=== PATIENT | female | born 1930 | race Caucasian/White ===

== ENCOUNTER 2017-06-21 10:47 | Emergency (ER) | payer MEDICARE ==
[2017-06-21 11:40] LABS: ABS Basophils 0 10^3/ul (0-0.2); ABS Eosinophils 0 10^3/ul (0-0.6); ABS Lymphocytes 1.1 10^3/ul (1.0-4.8); ABS Monocytes 0.3 10^3/ul (0-0.8); ABS Neutrophils 4.1 10^3/ul (1.5-7.7); ABS Nucleated RBC 0 10^3/ul; Eosinophil % 0.8 % (0-6); Hematocrit 40 % (35-47); Hemoglobin 13.3 g/dl (12.0-16.0); Lymphocyte % 20.1 % (25-47); Mean Corpuscular HGB Conc 33 g/dl (31-36); Mean Corpuscular Hemoglobin 30 pg (27-31); Mean Corpuscular Volume 90 fL (80-97); Mean Platelet Volume 7 um3 (7.4-10.4); Nucleated Red Blood Cells % 0.1; Platelet Count 253 10^3/ul (150-450); Red Blood Count 4.42 10^6/ul (4.0-5.4); Red Cell Distribution Width 14 % (10.5-15); White Blood Count 5.6 10^3/ul (3.5-10.8)
[2017-06-21 11:46] LABS: INR 0.87 (0.77-1.02)
[2017-06-21 12:06] LABS: EGFR Non-African American 67.8 (>60)
[2017-06-21 13:21] LABS: Urine Appearance Clear; Urine Blood 1+ (Negative); Urine Color Straw; Urine Ketones Trace (Negative); Urine Protein Negative (Negative); Urine Specific Gravity 1.008 (1.010-1.030); Urine Urobilinogen Negative (Negative)
[2017-06-21 15:46] VITALS: BP 148/97
--- NOTE | 2017-06-21 22:34 | ED ---
Miah Bruce Stephanie, scribed for Salud Lozano MD on 06/21/17 at 1154 . Dizziness - HPI Summary HPI Summary: The pt is an 86 y/o F with c/o dizziness that began 06/16/17. The pt reports feeling dizzy at night prior to going to bed and after getting up after a nap. The dizziness is described as room-spinning dizziness and results in the inability to ambulate. She reports that a hole was found near the furnace on and has recently been repaired. Pt is worried that she has CO poisoning. Pt's son installed a CO monitor that is not alarming. The pt denies CP. Pt takes no medications except glaucoma eye drops. Has Dr. Brar, whom she saw in 04/2017. - History Of Current Complaint Chief Complaint: EDDizziness Stated Complaint: CARBON MONOXIDE EXPOSURE Hx Obtained From: Patient, Family/Manager Quantitative - Daughters Onset/Duration: Still Present Timing: Intermittent Episode Lasting - minutes to hours Severity Initially: Moderate Severity Currently: Mild Character: Room Spinning, Dizzy Aggravating Factor(s): Exertion, Position Change Alleviating Factor(s): Rest Associated Signs And Symptoms: Positive: Unsteady Gait. Negative: Chest Pain - Allergies/Home Medications Allergies/Adverse Reactions: Allergies Allergy/AdvReac Type Severity Reaction Status Date / Time Nitroglycerin Allergy hypotension Verified 06/21/17 10:53 Home Medications: Home Medications Latanoprost 0.005%* [Xalatan 0.005%*] 1 drop BOTH EYES BID 06/21/17 [History Confirmed 06/21/17] PMH/Surg Hx/FS Hx/Imm Hx Previously Healthy: No - glaucoma Cardiovascular History: Reports: Other Cardiovascular Problems/Disorders - childhood rheumatic fever/ temporal arteritis Denies: Hx Pacemaker/ICD Musculoskeletal History: Reports: Hx Arthritis, Hx Back Problems - back fracture Sensory History: Reports: Hx Contacts or Glasses, Hx Glaucoma, Other Sensory Impairments Denies: Hx Hearing Aid Opthamlomology History: Reports: Hx Contacts or Glasses, Hx Glaucoma, Other Sensory Impairments Psychiatric History: Denies: Hx Panic Disorder - Surgical History Surgery Procedure, Year, and Place: LUMP REMOVED FROM BREAST BENIGN. HYSTERECTOMY. GALLBLADDER. CATARACTS. TEMPORAL LOBE BIOPSY W/ CLIPS- OK'S BY . hip replacement 2016 Hx Anesthesia Reactions: No Infectious Disease History: No Infectious Disease History: Denies: Traveled Outside the [place] in Last 30 Days - Family History Known Family History: Positive: Cardiac Disease, Other - stroke - Social History Lives: Alone Alcohol Use: Rare Substance Use Type: Reports: None Smoking Status (MU): Never Smoked Tobacco Review of Systems Positive: Other - dizzy. Negative: Fever Negative: Chest Pain Respiratory: Negative Gastrointestinal: Negative Neurological: Other - dizzy Positive: Other - states she has white coat hypertension All Other Systems Reviewed And Are Negative: Yes Physical Exam - Summary Physical Exam Summary: Appearance: well appearing, no pain distress, Well-nourished, c/o dizziness, elevated BP Skin: Warm, color reflects adequate perfusion Head: Normal Head/Face inspection Eyes: Conjunctiva clear ENT: Normal inspection Neck: Supple, no nodes, no JVD. Respiratory: Lungs clear, Normal breath sounds, no respiratory distress Cardio: RRR, No murmur, pulses normal, brisk capillary refill Abdomen: soft, nontender Bowel sounds: present Musculoskeletal: Strength Intact/ ROM intact. No calf tenderness. No edema. Neuro: Alert, muscle tone normal, facial symmetry, speech normal, sensory/motor intact Psychological: Normal Triage Information Reviewed: Yes Vital Signs On Initial Exam: Initial Vitals Temp Pulse Resp BP Pulse Ox 98.3 F 81 16 173/87 97 06/21/17 10:54 06/21/17 10:54 06/21/17 10:54 06/21/17 10:54 06/21/17 10:54 Vital Signs Reviewed: Yes Diagnostics - Vital Signs Vital Signs Temp Pulse Resp BP Pulse Ox 06/21/17 10:54 98.3 F 81 16 173/87 97 - Laboratory Lab Results: Lab Results 06/21/17 06/21/17 06/21/17 Range/Units 11:31 11:31 11:31 WBC 5.6 (3.5-10.8) 10^3/ul RBC 4.42 (4.0-5.4) 10^6/ul Hgb 13.3 (12.0-16.0) g/dl Hct 40 (35-47) % MCV 90 (80-97) fL MCH 30 (27-31) pg MCHC 33 (31-36) g/dl RDW 14 (10.5-15) % Plt Count 253 (150-450) 10^3/ul MPV 7 L (7.4-10.4) um3 Neut % (Auto) 72.4 (38-83) % Lymph % (Auto) 20.1 L (25-47) % [place] % (Auto) 6.0 (1-9) % Eos % (Auto) 0.8 (0-6) % Baso % (Auto) 0.7 (0-2) % Absolute Neuts (auto) 4.1 (1.5-7.7) 10^3/ul Absolute Lymphs (auto) 1.1 (1.0-4.8) 10^3/ul Absolute Monos (auto) 0.3 (0-0.8) 10^3/ul Absolute Eos (auto) 0 (0-0.6) 10^3/ul Absolute Basos (auto) 0 (0-0.2) 10^3/ul Absolute Nucleated RBC 0 10^3/ul Nucleated RBC % 0.1 INR (Anticoag Therapy) 0.87 (0.77-1.02) Carbon Monoxide Screen < 4 (<4.0) % Result Diagrams: 06/21/17 11:31 06/21/17 11:31 Lab Statement: Any lab studies that have been ordered have been reviewed, and results considered in the medical decision making process. - EKG 11:51 EKG Rhythm: Sinus Rhythm ST Segment: Non-Specific Ectopy: None EKG Interpretation: Nml AVIVCT. Nml QTc. Nml axis. nonspecific ST wave changes. EKG Comparison: Other - comparison with previous EKG from 12/27/15 (at time of hip replacement): pt has a deep Q wave in lead III and an inverted T in III that is new Re-Evaluation - Re-Evaluation First Eval Re-Evaluation Time: 13:05 Change: Unchanged - discussed admission due to EKG changes, elevated BP with diastolics greater than 100 and symptoms of dizziness, not attributable to CO poisoning. Pt and daughters resistant to idea of admission, stating BP is elevated due to white coat HTN. Second Eval Re-Evaluation Time: 14:19 - ED physician spoke to Dr. Brar. Bp is 124/84. Dr. Brar will fax over a copy of the EKG. Change: Improved - BP is now 154/86. Discussed with Dr. Brar by phone who states that BP was 124/84 on 05/02/17, and BP was 170/[address] Brar states that EKG after the hip replacement did show inverted T in III, and small upturned R wave preceding Q wave in III, so that perhaps EKG changes are not acute. Dizzy Course/Dx - Course Course Of Treatment: The ED physician has discussed the condition of the pt with Dr. Wei and they agree with admission of the pt. The patients diastolic blood pressure is currently over 100. Multiple discussions with all 3 daughters and pt and Dr. Brar about my concern for pt's continued dizziness, EKG changes new since 12/2015, but perhaps not new c/w Dr. Brar's most recent EKG, and pt's elevated BP. Pt's BP decreased to diastolics less than 100 without any treatment. Pt never had chest pain. Troponin x 2 are negative in the ED. Pt will be discharged to have follow up with Dr. Brar in the next 2- 3 days, sooner if needed. - Diagnoses Differential Diagnosis/HQI/PQRI: Anxiety, Coronary Artery Disease, Meniere's Disease, Myocardial Infarction, Transient Ischemic Attack, Other - HTN Provider Diagnoses: Dizziness, Acute electrocardiogram changes, Elevated BP without diagnosis of hypertension - Provider Notifications Discussed Care Of Patient With: Virginie Wei Time Discussed With Above Provider: 13:36 - Advise to admit pt. Instructed by Provider To: Admit As Inpatient Discharge - Discharge Plan Condition: Stable Disposition: HOME Patient Education Materials: Hypertension (ED), Dizziness (ED) Referrals: Elise Brar MD [Primary Care Provider] - Additional Instructions: We have given you a copy of your labs and EKG. We have discussed all of this with Dr. Brar. She will see you in the office this week. Your carbon monoxide level was less than 4 (which is normal). Your blood pressures were elevated in the ER, with some of the diastolic numbers above 100. Dr. Brar will evaluate this, and the EKG changes with you. Return to the ER if you have new or worsening symptoms. The documentation as recorded by the Miah elliott Stephanie accurately reflects the service I personally performed and the decisions made by Blake escobedo Barbara J, MD.
== END 2017-06-21 15:45 | disposition home or self-care (01) ==
LOC: ED 10:47
DX: R42 Dizziness and giddiness (principal); R94.31 Abnormal electrocardiogram [ECG] [EKG]; R03.0 Elevated blood-pressure reading, without diagnosis of hypertension
CPT/HCPCS: 36415; 80053; 81003; 81015; 82375; 83605; 83735; 84443; 84484; 85025; 85610; 86140; 93005; 99283

== ENCOUNTER 2017-09-18 11:03 | Emergency (ER) | payer MEDICARE ==
[2017-09-18 11:13] VITALS: BP 149/96
--- NOTE | 2017-09-18 12:27 | UC ---
Throat Pain/Nasal Eze HPI - HPI Summary HPI Summary: 87 y/ female presents to the urgent care c/p sore sore throat, dry cough, fatigue, nasal congestion w/ yellowish nasal discharge since 09/14/2017. Pt states pain sw/ swallowing is 2/10, but she thinks she needs antibiotics, because symptoms are not improving and she is waking up very congested. She took an Aleve this morning which helped w/ her HERNANDEZ. Pt denies dizziness, SOB, chest pain, abdominal pain, N/V/D. - History of Current Complaint Chief Complaint: UCRespiratory Stated Complaint: SORE THROAT Time Seen by Provider: 09/18/17 12:25 Hx Obtained From: Patient Onset/Duration: Gradual Onset, Lasting Days - 5 days, Still Present, Worse Since - this morning Severity: Moderate Pain Intensity: 2 Pain Scale Used: 0-10 Numeric Cough: Nonproductive Associated Signs & Symptoms: Positive: Dysphagia, Sinus Discomfort, Nasal Discharge - Epiglottits Risk Factors Epiglottis Risk Factors: Negative - Allergies/Home Medications Allergies/Adverse Reactions: Allergies Allergy/AdvReac Type Severity Reaction Status Date / Time nitroglycerin Allergy See Comment Verified 09/18/17 11:14 PMH/Surg Hx/FS Hx/Imm Hx Previously Healthy: Yes Other Cardiovascular History: Rheumatic fever - Surgical History Surgical History: Yes Surgery Procedure, Year, and Place: LUMP REMOVED FROM BREAST BENIGN. HYSTERECTOMY. GALLBLADDER. CATARACTS. TEMPORAL LOBE BIOPSY W/ CLIPS- OK'S BY . hip replacement 2015 - Family History Known Family History: Positive: Cardiac Disease, Other - stroke - Social History Occupation: Retired Lives: With Family Alcohol Use: Rare Substance Use Type: None Smoking Status (MU): Never Smoked Tobacco - Immunization History Most Recent Influenza Vaccination: Fall 2014 Most Recent Tetanus Shot: within 3 years Most Recent Pneumonia Vaccination: > 10 years Review of Systems Constitutional: Fatigue Skin: Negative Eyes: Negative ENT: Sore Throat, Nasal Discharge, Sinus Congestion, Sinus Pain/Tenderness Respiratory: Cough - dry Cardiovascular: Negative Gastrointestinal: Negative Genitourinary: Negative Motor: Negative Neurovascular: Negative Musculoskeletal: Negative Neurological: Headache Psychological: Negative Is Patient Immunocompromised?: No All Other Systems Reviewed And Are Negative: Yes Physical Exam - Summary Physical Exam Summary: Vitals: reviewed General: Well developed, well-nourished thin female patient with NAD. Head and face: Normocephalic and atraumatic, Positive tenderness over the frontal and maxillary sinuses.. Eyes: PERRLA, EOMI x 2. Normal conjunctiva. No eye discharge. ENT: Ears and TM with normal limits. Nose: with yellowish discharge and erythematous mucosa. Pharynx with erythema, no exudate.mild B/L tonsilar enlargement w/o exudate Neck: Supple, no JVD, no carotid bruits and no lymphadenopathy. Lungs: clear, no rales, no rhonchi, no wheezes. CVS: RRR, S1 and S2 present no murmurs or gallops appreciated. Abdomen: soft nontender with positive bowel sounds. Extremities: no edema noted. Neuro: WNL. Skin: warm and dry Triage Information Reviewed: Yes Vital Signs: Initial Vital Signs Temp 99.2 F 09/18/17 11:11 Pulse 77 09/18/17 11:11 Resp 18 09/18/17 11:11 BP 149/96 09/18/17 11:11 Pulse Ox 97 09/18/17 11:11 Throat Pain/Nasal Course/Dx - Course Course Of Treatment: 87 y/ female presents to the urgent care c/p sore sore throat, dry cough, fatigue, nasal congestion w/ yellowish nasal discharge since 09/14/2017. Pt states pain sw/ swallowing is 2/10, but she thinks she needs antibiotics, because symptoms are not improving and she is waking up very congested. She took an Aleve this morning which helped w/ her HERNANDEZ. Pt denies dizziness, SOB, chest pain, abdominal pain, N/V/D. Hx obtained. Pt w/ sinusinitis and pharyngitis on examination. Rapid strep ordere: negative. Pt educated to continues w/ symptomatic Tx to clear sinuses. However she requested ABx tx since she states she has Hx of recurrent sinusitis. Pt Rx Augmentin PO and flonase nasal spray and advised to start in 2-3 only if symptoms worsen. Also advised if not improvement of symptoms w/ ABx to f/u w/ her PCP for further Tx. Pt's BP is elevated today advised to decrease salt in diet, monitor BP and f/u with PCP for further management. Pt understood and agreed w/ plan of care. Pt left the clinic ambulating and hemodynamically stable , A&OX3. - Differential Dx/Diagnosis Differential Diagnosis/HQI/PQRI: Laryngitis, Otitis Media, Pharyngitis, Sinusitis, URI Provider Diagnoses: 1- Pharyngitis. 2-Acute bacterial pharyngitis. 3- Elevated BP W/ Hx of HTN Discharge - Sign-Out/Discharge Documenting (check all that apply): Discharge - Discharge Plan Condition: Stable Disposition: HOME Prescriptions: Amoxicillin/Clavulanate TAB* [Augmentin TAB 875*] 875 mg PO BID #14 tab Fluticasone NASAL SPRAY 50MCG* [Flonase NASAL SPRAY 50MCG*] 2 spray BOTH NARES DAILY #1 btl Patient Education Materials: Sinusitis (ED), Low-Sodium Diet (ED) Referrals: Elise Brar MD [Primary Care Provider] - Additional Instructions: 1- Please increase fluid intake and rest. Start antibiotic treatment if in 2 days symptoms do not improve w/ saline drops and flonase nasal spray. Then take full course of antibiotic to avoid resistance 2-Use Flonase as directed to help drain fluid. Also buy saline drops to clear sinuses 3-Return to the clinic or PCP if symptoms do not improve for further management and treatment 4-Your BP is elevated today. please decrease salt in your diet, monitor BP and if it continues to be elevated please f/u with your PCP for further management - Billing Disposition and Condition Condition: STABLE Disposition: HOME
== END 2017-09-18 13:00 | disposition home or self-care (01) ==
LOC: UCEAST 11:03
DX: J02.8 Acute pharyngitis due to other specified organisms (principal); J34.89 Other specified disorders of nose and nasal sinuses; R53.83 Other fatigue; R05 Cough; I10 Essential (primary) hypertension; Z96.649 Presence of unspecified artificial hip joint; Z88.8 Allergy status to other drugs, medicaments and biological substances
CPT/HCPCS: 87651; 99212; G0463